=== PATIENT | male | born 1980 | race Caucasian/White ===

== ENCOUNTER 2021-12-16 19:46 | Emergency (ER) | payer OTHER, SELFPAY ==
[2021-12-16 19:47] VITALS: BP 116/86; PULSE 107; RESP 16; TEMP 36.8; O2SAT 98; BMI 20.2
--- NOTE | 2021-12-16 20:07 | EX.ED.DYSGE1 ---
HPI History of Present Illness Chief Complaint: General Illness Informant: patient Onset/Context/Timing Onset: Days (several, he thinks) Context: Gradual Onset Timing: Continuous Quality: fatigued Location: all over Current Severity: Severe Maximum Severity: Severe Worsened by: nothing Relieved by: nothing Narrative Narrative: Patient states he feels ill. He has trouble answering specific questions yes or no, just saying I just feel sick. Sounds like he is having a minor cough, some diarrhea that is not severe, and no fevers. No known sick contacts, unvaccinated including COVID, not sure exactly how long he has been ill, he thinks several days. PFSH PFSH Medical History no medical history no medical history Home Medications NK 12/16/21 [History Last Taken Unknown] Allergy/AdvReac Type Severity Reaction Status Date / Time No Known Allergies Allergy Verified 12/16/21 19:47 Surgical History no surgical history no surgical history Social History Smoking Status: Current every day smoker tobacco type: cigars ROS ROS ED Constitutional Constitutional ED: Reports fatigue, malaise and poor appetite; Denies body ache(s), chills or fever(s) Eyes Eyes: Denies change in vision or diplopia ENT ENT ED: Denies rhinorrhea or sore throat Cardiovascular Cardiovascular: Denies chest pain or palpitations Respiratory/Chest Respiratory/Chest: Reports cough and dyspnea Gastrointestinal Gastrointestinal: Reports diarrhea; Denies abdominal pain, nausea or vomiting Genitourinary Genitourinary ED: Denies dysuria or hematuria Musculoskeletal Musculoskeletal: Denies back pain or neck pain Integumentary Denies abscess or rash Neurologic Neurologic: Denies headache(s), paresthesias or weakness Psychiatric Psychiatric: Denies anxiety or suicidal thoughts EXAM Physical Exam Const Vital Signs: 12/16/21 19:47 12/16/21 19:55 Temperature 98.2 F Temperature Source Temporal Pulse Rate 107 H Respiratory Rate 16 Respiratory Effort Normal Non-Labored Respiratory Pattern Normal Blood Pressure 116/86 H Blood Pressure Mean 96 Pulse Ox 98 Oxygen Delivery Method Room Air Positive well nourished and well developed Constitutional Narrative: Appears malaised, keenly alert no distress General Appearance ED: well developed and NAD HEENT Reports moist mucous membranes normocephalic and atraumatic Eyes PERRL and EOMs intact bilaterally Neck full ROM, No nuchal rigidity, no lymphadenopathy, supple and no meningeal signs Resp normal respiratory effort and clear to auscultation bilaterally Cardio regular rate, regular rhythm and no murmurs Cardio Narrative: Mild tachycardia GI non-tender and non-distended Auscultation: normoactive bowel sounds Palpation: soft Back/Spine no CVA tenderness General Back: other FROM Extremity normal to inspection, no calf tenderness and no pedal edema General Extremety ED: Negative for edema, pulses abnormal or tenderness General Extremity: Negative for edema or pulses abnormal Neuro oriented x3, CN's II-XII intact bilaterally and no sensory deficits noted Sensorium / Orientation: awake and alert Motor Exam: strength 5/5 throughout Skin no rashes or lesions noted and no wounds MDM MDM MDM Narrative Medical decision making narrative: One-view portable chest x-ray on my interpretation is normal. Performed rapid COVID and influenza swabs, they are both negative. Unknown how long the patient has been ill since he is not sure, so I will send a COVID PCR to ensure this is not a false negative, and since his vital signs are normal I think he can be discharged home. Family is comfortable with that plan, suspect viral syndrome if his COVID PCR returns negative. Patient does present during the time when there is an uptick in COVID prevalence in his community. Discharge Plan Triage Chief Complaint: General Illness ED Provider: Reji Armstrong Dx/Rx/DC Orders Clinical Impression: Acute viral syndrome, Suspected COVID-19 virus infection Instructions: Coronavirus Disease 2019 (COVID-19): Caring for Yourself or Others, ED Viral Syndrome (Adult) Prescriptions: No Action NK RF: 0 Primary Care Provider: Provider,Ed Physician Referrals: Provider,Ed Physician [Primary Care Provider] - Doctor,Your [STAFF PHYSICIAN] - 1 Week if not improving Activity Restrictions/Additional Instructions: Try to get a home portable pulse oximeter and closely watch your oxygen levels periodically. If you stay below 90% for more than a minute or so, and/or you are feeling like your breathing is getting worse, return to the emergency department for further evaluation. Disposition Disposition: Home, Self Care
--- NOTE | 2021-12-16 20:12 | RAD_ITS ---
STUDY: X-RAY CHEST REASON FOR EXAM: Male, 41 years old. cough TECHNIQUE: AP portable COMPARISON: None. FINDINGS: Lungs are hyperinflated but clear.. There is no demonstrated pleural abnormality. Normal size heart. Normal mediastinum and osorio. Normal visualized pulmonary arteries. Normal visualized aortic arch and descending thoracic aorta. Normal visualized thoracic spine. Normal visualized ribs, clavicles, and shoulders. There is no demonstrated abnormality of the visualized soft tissue structures of the upper abdomen. RAD/Chest 1 View (Portable) IMPRESSION: Hyperinflation. No acute cardiopulmonary pathology Electronically Signed: Lucas Rain MD at 20:51 EDT ,
[2021-12-16 21:00] VITALS: BP 124/89; PULSE 80; RESP 17; O2SAT 100
== END 2021-12-16 21:00 | disposition home or self-care (01) ==
PROVIDERS: Emergency Provider Emergency Medicine; Visit Provider Emergency Medicine
DX: B34.9 Viral infection, unspecified (principal); F17.290 Nicotine dependence, other tobacco product, uncomplicated; Z20.822 Contact with and (suspected) exposure to COVID-19
CPT/HCPCS: 71045; 87428; 87635; 99283; A4216; U0003; U0005